=== PATIENT | female | born 1955 | race Caucasian/White ===

== ENCOUNTER 2022-12-04 08:00 | Outpatient (RCR) | payer MEDICARE, SELFPAY ==
--- NOTE | 2022-10-21 11:18 | MHC.PT.EP ---
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 PRESENTS TO PT WITH C/O PAIN MED L KNEE (?PES ANSERINE BURSITIS) WITH DECREASED QUAD STRENGTH. Pt WITH GENU VARUS AND PES PLANUS. SHE WORKS AT [email or web address] AND HAS PAIN WITH PROLONGED STAND AND STAIRS. SOME PATELLA ASYMMETRY. Pt TEARY DURING EVAL RE KNEE PAIN AND BALANCE ISSUES AFFECTING HER OVERALL FUNCTIONAL MOBILITY AND ACTIVITY LEVEL. OF NOTE, Pt NOTED TO BE UNSTEADY WITH SIT<>STAND TRANSF AND GT. UNSURE OF SOURCE OF BAL ISSUES. SHOULD BENEFIT FROM PT TO HELP INCREASE LE STRENGTH AND HELP DECREASE PAIN (US, IONTO, KT, ST WORK) AND FURTHER ASSESS/TREAT BALANCE ISSUE Frequency and Duration: The patient will be seen 2X/WK X 6 WKS Short Term Goals: 1. INCREASED AWARENESS KNEE CARE 2. Pt TO WEAR ORTHOTICS WITH RELIEF 3. I KT L KNEE IF INDICATED Intermediate Goals: 1. I HEP WITH DC EX PLAN 2. INCREASED QUAD STRENGTH TO 5/5 WITH MMT 3. DECREASED L KNEE PAIN AT LEAST 50% WITH ADLS 4. SLS R AND L AT LEAST 10 SEC EA Treatment Plan: Modalities to reduce pain, spasms and effusion. Manual therapy to restore motion and function. Therapeutic exercise to improve strength and flexibility. Neuromuscular re-education for posture and balance. Therapeutic activities to return to functional activities of daily living. Electronically signed by: ANISH LOTT PT Please sign and return to therapist. Thank you for your referral.
--- NOTE | 2023-02-26 09:39 | MHC.PT.DC ---
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 Yvonne has been educated and issued a written HEP program to aide AAROM>AROM, gentle quad>hip>core strengthening, and CKC. Pt has been encouraged to continue to perform low impact exercise such as use of recumbent bike at the senior center>gym to ease pain and maintain ROM. Pt has been trialed with supportive ROCKTAPE and trialed with US for her medial joint line pain with short term gains. In the start of therapy, pt was expressing weakness and instability of her left knee which appears to have improved with the strengthening activities. 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 AROM L knee 0 to 135 degrees today. Please advise- Yvonne has been encouraged to continue her home program within pain-free tolerance. She continues to express decreased recreational walking tolerance to 15 minutes. She denies sleep distubance. She reports daily use of 600mg ibuprofen. She has been icing her knee daily at night. Yvonne has been wearing Dr. Chawla's orthotic inserts in her sneakers and she has been educated in the benefit in trialing these inserts in her work shoes. Pt has been recommended to follow up with her orthopedist due to plateaued status. She reports limited gains with previous knee injections which she received last summer.'. NO FURTHER APPTS SCHEDULED Electronically signed by: ANISH LOTT PT Please sign and return to therapist. Thank you for your referral.
== END 2023-02-26 09:39 | disposition home or self-care (01) ==
LOC: HO.PTWFD 08:00
PROVIDERS: Visit Provider Hospitalist
DX: M71.20 Synovial cyst of popliteal space [Baker], unspecified knee (principal)
CPT/HCPCS: 97035; 97110; 97140; 97162; 97164; 97530; 97535

== ENCOUNTER 2023-03-01 09:56 | Outpatient (REF) | payer MEDICARE, SELFPAY ==
[2023-03-01 11:44] LABS: Hematocrit 42.3 % (37.0-47.0); Hemoglobin 14.3 g/dl (12.0-16.0); Mean Corpuscular HGB Conc 33.8 g/dl (31.0-35.0); Mean Corpuscular Hemoglobin 30.5 pg (27.0-33.0); Mean Corpuscular Volume 90.2 fL (80.0-98.0); Mean Platelet Volume 10.4 fL (9.4-12.3); Platelet Count 242 X10*3/uL (160-400); Red Blood Count 4.69 X10*6/uL (4.20-5.50); Red Cell Distribution Width 13.5 % (11.0-16.0); White Blood Count 5.8 X10*3/uL (4.8-10.8)
[2023-03-01 12:31] LABS: Alanine Aminotransferase 30 U/L (0-31); Albumin Level 4.3 g/dL (3.5-5.0); Alkaline Phosphatase 86 U/L (39-117); Anion Gap 13 (12-20); Aspartate Amino Transferase 22 U/L (5-31); Bilirubin Total 0.8 mg/dL (0.0-1.0); Blood Urea Nitrogen 16 mg/dL (9-16); Calcium 9.7 mg/dL (8.4-10.2); Carbon Dioxide 30 mmol/L (22-29); Chloride 105 mmol/L (96-108); Cholesterol 175 mg/dL; Estimated Glomerular Filt Rate > 60; Glucose Fasting 103 mg/dL (60-99); HDL Cholesterol 56 mg/dL; LDL Cholesterol Calculated 105 mg/dl; Potassium 4.2 mmol/L (3.3-5.1); Sodium 144 mmol/L (135-145); Total Protein 6.8 g/dL (6.5-8.0); Triglycerides 72 mg/dL
== END 2023-03-01 09:57 | disposition home or self-care (01) ==
LOC: HO.WFDLDS 09:56
PROVIDERS: Visit Provider Hospitalist
DX: Z00.00 Encounter for general adult medical examination without abnormal findings (principal); E66.3 Overweight; I10 Essential (primary) hypertension
CPT/HCPCS: 36415; 80053; 80061; 84443; 85027